=== PATIENT | female | born 1975 | race Hispanic/Latino ===

== ENCOUNTER 2017-02-25 05:58 | Day surgery (SDC) | payer MEDICAID ==
[2017-02-25] MEDS ORDERED: WATER FOR IRRIG STERILE IR ONE (07:37)
--- NOTE | 2017-02-25 07:41 | Anesthesia Consultation ---
Anesthesia Consult and Med Hx - Airway Anesthetic Teeth Evaluation: Good ROM Head & Neck: Adequate Mental/Hyoid Distance: Adequate Mallampati Class: Class I - Pulmonary Exam CTA: Yes - Cardiac Exam Cardiac Exam: RRR - Pre-Operative Health Status ASA Pre-Surgery Classification: ASA3 Proposed Anesthetic Plan: General - Cardiovascular System Hx Hypertension: Yes - Endocrine Hx Thyroid Disease: Yes Hx Hypothyroidism: Yes - Other Systems Hx Obesity: Yes (BMI>40) - Additional Comments Anesthesia Medical History Comments: No previous anesthesia complications.
--- NOTE | 2017-02-25 07:41 | Anesthesia Day of Surgery ---
Anesthesia Day of Surgery - Day of Surgery Patient Examined: Yes Patient H&P Reviewed: Yes Patient is NPO: Yes Beta Blockers: Yes
--- NOTE | 2017-02-25 07:46 | Discharge Summary ---
Providers - Providers Date of discharge: 02/25/17 Attending physician: PAVITHRA BANKS Hospitalization Condition: Good Disposition: DISCHARGED TO HOME OR SELFCARE Core Measure Documentation - Palliative Care Palliative Care/ Comfort Measures: Not Applicable - Core Measures Any of the following diagnoses?: none Exam - Physical Exam Narrative exam: unchanged from h&p Plan Activity: no restrictions Weight Bearing Status: Full Weight Bearing Diet: regular
[2017-02-25] MEDS ORDERED: DIPRIVAN 10 MG/ML IV ONE (08:00)
[2017-02-25] MEDS ORDERED: NACL 0.9% 1000 ML 1,000 ML IV SCH (08:00)
[2017-02-25] MEDS ORDERED: XYLOCAINE MPF 2% ONE (09:10)
--- NOTE | 2017-02-25 09:36 | Post Anesthesia Evaluation ---
- Post Anesthesia Evaluation Patient Participated: Yes Airway Patent: Yes Stable Respiratory Function: Yes Nausea/Vomiting: No Temp > 96.8F: Yes Pain Manageable: Yes Adequeate Hydration: Yes Anesthesia Complications: No Block Receding Appropriately: Not Applicable Patient on Ventilator: No
--- NOTE | 2017-02-25 09:43 | Operative Report ---
Operative Report Operative Report: OPERATIVE REPORT - EGD DATE 02/25/17 SURGERY: Upper endoscopy. SURGEON: Asad Nunez M.D. HEALTH SANITARIAN: n/a PRE OP DX: GERD POST OP DX: GERD TYPE OF ANESTHESIA: MAC. ESTIMATED BLOOD LOSS: None. COMPLICATIONS: None. SPECIMENS REMOVED: None. FINDINGS: 1. normal anatomy of banded gastric stomach INDICATIONS:INDICATION FOR PROCEDURE: Patient is a 42-year-old female with a long history of morbid obesity and gastric banding. she has symptoms of gastric reflux and is here today to have egd before converting from a band to another bariatric procedure. PROCEDURE DETAILS: After consent was reviewed, patient was taken back to the operating room where patient was placed in the left lateral decubitus position and a bite block was placed in the mouth. After a time-out was called, MAC anesthesia was initiated. I then passed the endoscope into her oropharynx, into her esophagus, visualized the entire esophagus, which was all within normal limits. I then visualized the stomach of which there was an expected proximal narrowing where the band is externally compressing. the first portion of the duodenum showed no abnormalities I could clearly visualize. I then retroflexed the scope in the stomach and visualized the underside of the banded portion of the stomach that showed no signs of erosion. I then desufflated the stomach and removed the endoscope. Patient tolerated procedure well and was transferred to recovery room in good and stable condition.
[2017-02-25 09:55] VITALS: BP 119/86
== END 2017-02-25 05:59 | disposition home or self-care (01) ==
LOC: GIO 05:58
PROVIDERS: ATTEND Surgery
DX: K21.9 Gastro-esophageal reflux disease without esophagitis (principal); I10 Essential (primary) hypertension; E03.9 Hypothyroidism, unspecified; E66.01 Morbid (severe) obesity due to excess calories; Z68.41 Body mass index [BMI] 40.0-44.9, adult; Z83.3 Family history of diabetes mellitus; Z98.84 Bariatric surgery status; Z82.49 Family history of ischemic heart disease and other diseases of the circulatory system; Z83.6 Family history of other diseases of the respiratory system
CPT/HCPCS: 43235; 81025; J2704